=== PATIENT | male | born 1960 | race Caucasian/White ===

== ENCOUNTER 2017-08-21 05:02 | Day surgery (SDC) | payer OTHER ==
[2017-08-14 09:09] VITALS: BMI 27.0
--- NOTE | 2017-08-14 09:35 | PAT Medication Instructions ---
Service Date Aug 14, 2017. Current Home Medication List Ascorbic Acid (Vitamin C), 1,000 MG PO QAM Docusate Sodium (Docusate Sodium), 2 CAP PO QAM PRN for Constipation Epinephrine (Epipen), 0.3 MG IM UD Fish Oil (Howes-3), 1 CAP PO QAM Multivitamins/Minerals (Mvi With Minerals), 1 TAB PO QAM Ocuvite Preservision (Ocuvite Preservision), 1 TAB PO QAM Saline (Saline Nasal [place] ), 2 SPRY JEREMIAH PRN Medication Instructions For Your Scheduled Surgery - Continue as directed: Epinephrine (Epipen), 0.3 MG IM UD -Hold the following medications starting tomorrow, 08/15: Fish Oil (Howes-3), 1 CAP PO QAM - Hold the following medications the morning of surgery: Ascorbic Acid (Vitamin C), 1,000 MG PO QAM Docusate Sodium (Docusate Sodium), 2 CAP PO QAM PRN for Constipation (if needed) Multivitamins/Minerals (Mvi With Minerals), 1 TAB PO QAM Ocuvite Preservision (Ocuvite Preservision), 1 TAB PO QAM - Take the following medications the morning of surgery with a sip of water: Saline (Saline Nasal [place] Infant), 2 SPRY JEREMIAH PRN (if needed) - Take the following medications as scheduled the night before surgery: Docusate Sodium (Docusate Sodium), 2 CAP PO QAM PRN for Constipation (if needed) If you have any questions please call us at [phone] or [phone] or [phone]
--- NOTE | 2017-08-14 10:23 | DIAGNOSTIC IMAGING REPORT ---
CHEST 2 VIEWS ROUTINE HISTORY: 57 years-old Male PAT preoperative exam. COMPARISON: Chest radiograph 10/11/2008 TECHNIQUE: Frontal and lateral views of the chest FINDINGS: Cardiomediastinal and hilar silhouettes are within normal limits. Mild hyperinflation. No pneumothorax, pleural effusion, focal airspace consolidation or overt pulmonary edema. Bones of the chest are grossly intact. IMPRESSION: Mild hyperinflation without acute cardiopulmonary process. The above report was generated using voice recognition software. It may contain grammatical, syntax or spelling errors. Electronically signed by: Omer Alvarenga M.D. 08/14/2017 10:22 AM Dictated Date/Time: 08/14/2017 10:21 AM
[2017-08-14 10:38] LABS: BASO % 0.2 %; BASO ABS # 0.02 K/uL (0-0.2); COMPLETE YES; EOS % 0.2 %; HEMATOCRIT 41.3 % (42-52); IG% 0.2 %; LYMPH % 13.5 %; LYMPH ABS # 1.33 K/uL (1.2-3.4); MEAN CELL VOLUME 86.8 fL (80-100); MEAN CORPUSCULAR HEMOGLOBIN 30.3 pg (25-34); MEAN CORPUSCULAR HGB CONC 34.9 g/dl (32-36); MEAN PLATELET VOLUME 8.8 fL (7.4-10.4); MONO % 15.6 %; NEUT % 70.3 %; PLATELET COUNT 170 K/uL (130-400); RED BLOOD COUNT 4.76 M/uL (4.7-6.1); WHITE BLOOD COUNT 9.82 K/uL (4.8-10.8)
[2017-08-14 10:58] LABS: BUN/CREATININE RATIO 14.5 (10-20); CALCIUM 8.9 mg/dl (8.5-10.1); CREATININE 1.22 mg/dl (0.60-1.40); POTASSIUM 4.4 mmol/L (3.5-5.1)
[~2017-08-21] VITALS: Ht 182.9 cm; Wt 91.9 kg
[~2017-08-21 05:02] MED LIST: ASCO10003 PO; DOCU100C31 PO; EPP3/2 IM; MULT-190 PO; MULT-513 PO; OMEG10007 PO; SALI1SPR15 NAE
[2017-08-21 05:25] VITALS: BP 170/95; PULSE 77; TEMP 36.7; O2SAT 99; Ht 182.9 cm; Wt 91.9 kg
[2017-08-21] MEDS ORDERED: LACTATED RINGER'S 1000ML 1,000 ML IV SCH (06:00)
--- NOTE | 2017-08-21 06:20 | History & Physical Bridge Note ---
H&P Re-Evaluation Bridge Note: I have examined the patient, reviewed the History & Physical and in the interval since the performance of the History & Physical I have noted the following changes of clinical significance: No changes noted at bedside
[2017-08-21] MEDS ORDERED: ONDANSETRON INJ 2 MG/ML 2 ML VIAL ONE (06:37)
[2017-08-21] MEDS ORDERED: MIDAZOLAM HCL 1 MG/ML 2ML VIAL ONE (06:37)
[2017-08-21] MEDS ORDERED: LIDOCAINE HCL 2% 2 ML VIAL (20MG/ML) ONE (06:37)
[2017-08-21] MEDS ORDERED: PROPOFOL IV EMULSION 10 MG/ML 20 ML VIAL IV ONE (06:37)
[2017-08-21] MEDS ORDERED: FENTANYL CITRATE INJ 50 MCG/1 ML 2 ML VIAL ONE (06:38)
[2017-08-21] MEDS ORDERED: ATROPINE SULFATE 0.1 MG/ML 5ML SYR IV PRN (06:45)
[2017-08-21] MEDS ORDERED: EpHEDrine SULFATE INJ 50 MG/ML AMP IV PRN (06:45)
[2017-08-21] MEDS ORDERED: ONDANSETRON INJ 2 MG/ML 2 ML VIAL IV PRN ×2 (06:45→08:15)
[2017-08-21] MEDS ORDERED: FENTANYL CITRATE INJ 50 MCG/1 ML 2 ML VIAL IV PRN (06:45)
[2017-08-21] MEDS ORDERED: HYDROmorphone INJ 1 MG/ML SYR IV PRN (06:45)
[2017-08-21] MEDS ORDERED: LABETALOL HCL IV 5 MG/ML 20ML IV PRN (06:45)
[2017-08-21] MEDS ORDERED: ACETAMINOPHEN 1000 MG/100 ML IV IV ONE (06:45)
[2017-08-21] MEDS ORDERED: BUPIVACAINE/EPINEPHRINE 0.5% MPF 1:200,000 30 ML VIAL ONE (07:05)
[2017-08-21] MEDS ORDERED: GELATIN SPONGE SZ 100 ONE (07:05)
[2017-08-21] MEDS ORDERED: OXYC-57 PO (07:54)
[2017-08-21] MEDS ORDERED: DOCU-94 PO (07:54)
[2017-08-21] MEDS ORDERED: SUCCINYLCHOLINE CHLORIDE 20 MG/ML 10 ML VIAL IV ONE (08:00)
[2017-08-21] MEDS ORDERED: ROCURONIUM BROMIDE 10 MG/ML 5 ML VIAL IV ONE (08:00)
[2017-08-21] MEDS ORDERED: SODIUM CHLORIDE 0.9% 1000ML 1,000 ML IV SCH (08:03)
--- NOTE | 2017-08-21 08:03 | Discharge Instructions ---
Discharge Instructions Date of Service Aug 21, 2017. Visit Reason for Visit: Anal Fistual Discharge Discharge Diagnosis / Problem: Anal Fistula Discharge Goals Goal(s): Decrease discomfort, Improve function Activity Recommendations Activity Limitations: as noted below Lifting Limitations: no more than 10 pounds Exercise/Sports Limitations: until after follow-up appointment Shower/Bathe: tomorrow (Sitz baths after packing removed tomorrow. 3-4 times daily. ) Driving or Machine Use: 1 week provided no longer taking pain medication. Anesthesia . Post Anesthesia Instructions: If you have had General Anesthesia or IV Sedation: * Do not drive today. * Resume driving when surgeon permits. * Do not make important decisions or sign legal documents today. * Call surgeon for: 1. Temperature elevations greater than 101 degrees F. 2. Uncontrollable pain. 3. Excessive bleeding. 4. Persistent nausea and vomiting. 5. Medication intolerance (nausea, vomiting or rash). * For nausea and vomiting use only clear liquids such as: tea, soda, bouillon until nausea subsides, then gradually increase diet as tolerated. * If you have any concerns or questions, call your surgeon's office. If physician is unavailable and it is an emergency, call 911 or go to the nearest emergency room. . Instructions / Follow-Up Instructions / Follow-Up You have packing and sutures in place. Please follow-up in the general surgery clinic tomorrow to have your sutures and packing removed. You will be contacted with an appointment time. Please contact our office at with any questions or concerns. [facility], [place] [facility] [employer]. [address] [place] [address]. Diet Recommendations Recommended Home Diet: no limitations Additional Diet Information: High Fiber, avoid spicy foods. Procedures Procedures Performed: Anal Exam Under Anesthesia, Excision of Fistulous Track Pending Studies Studies pending at discharge: no Medical Emergencies . Who to Call and When: Medical Emergencies: If at any time you feel your situation is an emergency, please call 911 immediately. . Non-Emergent Contact Non-Emergency issues call your: Primary Care Provider, Surgeon Call Non-Emergent contact if: you have a fever, temperature is above 101.5, your pain is not controlled, your pain is worsening, wound has increased drainage, wound has increased redness . . "Provider Documentation" section prepared by Yordy Miles. . [place] Drug Monitoring Program Search Results: patient reviewed within database (No matching patient identified)
--- NOTE | 2017-08-21 08:07 | [facility] Operative Report ---
Operative Report Operative Date Aug 21, 2017. Pre-Operative Diagnosis Anal Fistula Post-Operative Diagnosis Subcutaneous Perianal Fistula Track Procedure(s) Performed Anal Exam Under Anesthesia, Excision of Fistulous Track Surgeon Dr. Narciso Fox Inventory Transcriber Surgeon(s) Yordy Miles PA-C Estimated Blood Loss 5ml Findings perianal fistula tract at eleven position xochilt 2 inches to another opening subcutaneous towards scrotum Specimens A.) Perianal Fistula Track Drains 1/4 inch packing Description of Procedure OR summary dictated confirmation number [id number] I attest to the content of the Intraoperative Record and any orders documented therein. Any exceptions are noted below.
[2017-08-21] MEDS ORDERED: OXYCODONE/ACETAMINOPHEN 5-325 TAB PO PRN ×2 (08:15)
--- NOTE | 2017-08-21 08:26 | OPERATIVE REPORT ---
DATE OF OPERATION: 08/21/2017 SURGEON: Dr. Fox. SERVICE ORDER EXPEDITER: Yordy Gaets PA-C. PREOPERATIVE DIAGNOSIS: Perianal fistula. POSTOPERATIVE DIAGNOSIS: Two separate openings communicating at approximately 11 o'clock position toward the base of the scrotum, about 2 inches apart. PROCEDURE: Exam under anesthesia, excision of fistulous tract with packing. SUMMARY: The patient was brought into the operating room theater, was placed in the prone position. The buttocks were shaved and gently pulled apart with 4-inch nylon tape. The perianal area was then prepped with Betadine solution including the canal. At this point, we were able to see that the patient had 2 separate openings at 11 o'clock position in the perianal area, extending toward the base, seen about 2 inches apart. At this point, we did gently dilate the sphincter up. The sphincter appeared to be tied initially, and once we dilated it to 2 fingers, we placed a 4 x 4 gauze inside the canal with the anoscope. There was no gross pathology appreciated in the canal. At this point, I placed some peroxide through a 14 Angiocath in the opening next to the perianal area and we could see that the peroxide communicated with the other separate opening which was toward the scrotum. Then, I used a probe and it confirmed this more. At this point, we made an elliptical incision around that area, sufficient enough to get all the chronic abscesses and the 2 areas until we got to the normal tissue. Once this had been removed, we could not see any other fistulous opening, we pretty much had cleared up the tract. There was no evidence that this communicated with the perianal area or the anus itself, I am not sure the etiology of this, it did not behave like it possibly had an hidradenitis type of pattern because there was no other evidence of any other tracts in the area. At this point, once hemostasis was satisfactory, I used the quarter-inch packing into the opening and then I used 2 [id number] nylon suture to hold the packing and a dressing was applied. We used local anesthetic in the area. The procedure was tolerated well. Estimated blood loss approximately 5 mL. The patient was taken to recovery in good condition. Instruction would be given to come back tomorrow to remove the packing. I attest to the content of the Intraoperative Record and any orders documented therein. Any exception s are noted below.
--- NOTE | 2017-08-21 08:28 | Anesthesiology Progress Note ---
Anesthesia Post Op Note Date & Time Aug 21, 2017 at 08:28 Vital Signs Pain Intensity: 0 Vital Signs Past 12 Hours Date Time Temp Pulse Resp B/P (MAP) Pulse Ox O2 Delivery O2 Flow Rate FiO2 08/21/17 08:15 76 16 145/95 94 Oxymask 10 08/21/17 08:05 75 16 140/91 98 Oxymask 10 08/21/17 07:55 36.4 84 16 176/106 98 Oxymask 10 08/21/17 05:25 36.7 77 16 170/95 (120) 99 Room Air Notes Mental Status: alert / awake / arousable, participated in evaluation Pt Amnestic to Procedure: Yes Nausea / Vomiting: adequately controlled Pain: adequately controlled Airway Patency, RR, SpO2: stable & adequate BP & HR: stable & adequate Hydration State: stable & adequate Anesthetic Complications: no major complications apparent
[2017-08-21 08:42] VITALS: BP 144/92; PULSE 70; TEMP 37.1; O2SAT 95
[2017-08-21 09:15] VITALS: BP 157/96; PULSE 61; O2SAT 97
[2017-08-21 09:40] VITALS: BP 181/95; PULSE 70; TEMP 36.6; O2SAT 98
== END 2017-08-21 09:45 | disposition home or self-care (01) ==
LOC: C.ACU 05:02
PROVIDERS: ATTEND Surgery
DX: K60.3 Anal fistula (principal); I10 Essential (primary) hypertension; G47.30 Sleep apnea, unspecified; Z82.49 Family history of ischemic heart disease and other diseases of the circulatory system; Z91.013 Allergy to seafood; Z83.3 Family history of diabetes mellitus; Z80.42 Family history of malignant neoplasm of prostate; Z79.899 Other long term (current) drug therapy